=== PATIENT | female | born 1965 ===

== ENCOUNTER 2018-05-17 06:03 | Day surgery (SDC) | payer OTHER ==
[2018-05-17] MEDS ORDERED: Lactated Ringer's 500 ML IV ONE ×2 (08:02)
[2018-05-17] MEDS ORDERED: Propofol 10 mg/ml Inj (20 ML) ONE (08:17)
[2018-05-17] MEDS ORDERED: Lidocaine Hydrochloride 5 ML INJ ONE (08:18)
--- NOTE | 2018-05-17 08:18 | CP.SDSHP ---
Same Day Surgery H & P - History Proposed Procedure: colonoscopy Pre-Op Diagnosis: screening for colon cancer - Previous Medical/Surgical History Neuro: Seizure Disorder, Other (Cerebral palsy) Previous Surgical History: Multiple orthopedic procedures for CP complications - Allergies Allergies: Allergies morphine Allergy (Intermediate, Verified 09/18/15 09:58) RASH, ITCHINESS - Physical Exam Vital Signs: Vital Signs 05/17/18 06:32 Temperature 97.5 F L Pulse Rate 80 Respiratory 20 Rate Blood Pressure 119/75 O2 Sat by Pulse 97 Oximetry Mental Status: Alert & Oriented x3 Neuro: WNL Heart: WNL Lungs: WNL GI: WNL - Impression Impression: screening for colon cancer Pt. Evaluated Today:Candidate for Anesthesia & Procedure: Yes - Date & Time Date: 05/17/18 Time: 08:17 Short Stay Discharge - Short Stay Discharge Admitting Diagnosis/Reason for Visit: CHANGE IN BOWEL HABIT, SCREENING COLONOSCOPY Disposition: HOME/ ROUTINE
[2018-05-17 08:23] VITALS: O2SAT 100
[2018-05-17 12:03] VITALS: TEMP 96.6
[2018-05-17 12:11] VITALS: BP 130/80; PULSE 78; RESP 20
== END 2018-05-17 10:00 | disposition home or self-care (01) ==
LOC: C.ENDO 06:03
PROVIDERS: ATTEND Internal Medicine Gastroenterology
DX: K64.1 Second degree hemorrhoids (principal); R19.4 Change in bowel habit; G80.8 Other cerebral palsy; G40.909 Epilepsy, unspecified, not intractable, without status epilepticus; E78.5 Hyperlipidemia, unspecified
CPT/HCPCS: 45378; J2704; J7120

== ENCOUNTER 2018-07-20 18:47 | Emergency (ER) | payer OTHER ==
[2018-07-20 18:56] VITALS: O2SAT 98
[2018-07-20] MEDS ORDERED: Tdap Vaccine 0.5 ml Vial (10-64 yrs) IM ONE (19:18)
[2018-07-20] MEDS ORDERED: Bacitracin 500 Units/gm Oint Foilpak UD TOP STA (19:19)
[2018-07-20] MEDS ORDERED: Bacitracin 500 Units/gm Oint Foilpak UD ONE ×2 (19:26→20:54)
[2018-07-20] MEDS ORDERED: Tetanus/Diphtheria Toxoids 0.5 ml Syringe IM ONE (19:27)
--- NOTE | 2018-07-20 20:27 | C.PDOC ---
History Of Present Illness 53 y/o female presents to the ED for evaluation of injuries s/p fall 1 hour prior to arrival. Patient states she fell, hitting her right hand and left knee. Of note patient has PMHx of cerebral palsy and has slightly decreased ROM of the right hand at baseline. She denies any numbness, tingling, or extremity weakness. There was no head injury or LOC. Time Seen by Provider: 07/20/18 19:11 Chief Complaint (Nursing): Finger,Hand,&Wrist History Per: Patient History/Exam Limitations: no limitations Onset/Duration Of Symptoms: Mins Current Symptoms Are (Timing): Still Present Past Medical History Reviewed: Historical Data, Nursing Documentation, Vital Signs Vital Signs: Last Vital Signs Temp 98 F 07/20/18 18:51 Pulse 78 07/20/18 18:51 Resp 20 07/20/18 18:51 BP 105/66 07/20/18 18:51 Pulse Ox 98 07/20/18 18:51 - Medical History PMH: Hypercholesterolemia, Seizures Denies: Chronic Kidney Disease Other PMH: Cerebral Palsy - [facility] Procedures APPLICATION OF SPLINT (05/23/13) Family History: States: Unknown Family Hx - Social History Hx Tobacco Use: No Hx Alcohol Use: No Hx Substance Use: No - Immunization History Hx Tetanus Toxoid Vaccination: No Hx Influenza Vaccination: No Hx Pneumococcal Vaccination: No Review Of Systems Constitutional: Negative for: Fever Eyes: Negative for: Vision Change Cardiovascular: Negative for: Chest Pain Respiratory: Negative for: Shortness of Breath Gastrointestinal: Negative for: Nausea, Vomiting Musculoskeletal: Positive for: Hand Pain (right), Leg Pain (left knee) Neurological: Negative for: Weakness, Numbness, Incoordination Physical Exam - Physical Exam Appears: Non-toxic, No Acute Distress Skin: Warm, Dry, No Rash Head: Atraumatic, Normacephalic Eye(s): bilateral: Normal Inspection Neck: Normal ROM Chest: Symmetrical Cardiovascular: Rhythm Regular, No Murmur Respiratory: Normal Breath Sounds, No Accessory Muscle Use Extremity: Capillary Refill (less than 2sec), Swelling (and ecchymosis to dorsum of right hand), Other (Small superficial abrasion to left knee) Pulses: Left Radial: Normal, Right Radial: Normal Neurological/Psych: Oriented x3, Normal Speech, Normal Cognition, Other (Right hand with slight paralysis at baseline, patient reports ROM today is baseline) ED Course And Treatment O2 Sat by Pulse Oximetry: 98 (RA) Pulse Ox Interpretation: Normal - Other Rad Left Knee XR X-Ray: Interpreted by Me, Viewed By Me Interpretation: (-) acute fracture or dislocation Right Hand XR X-Ray: Interpreted by Me, Viewed By Me Interpretation: (-) acute fracture or dislocation Progress Note: Patient given 400 mg PO motrin for pain. Tetanus booster updated. X-rays taken of right hand and left knee, showing no acute fractures. Wound cleaned, bacitracin applied with sterile dressing. KEVIN wrap placed to right hand and knee immobilizer applied to left knee. Patent is stable for discharge home, advised to follow up with orthopedist. Disposition - Disposition Referrals: Dylan Ralph III, MD [Staff Provider] - Anabell Oseguera MD [Medical Doctor] - Disposition Time: 20:56 Condition: STABLE Additional Instructions: Follow up with PMD and Orthopedist within 1-2 days. Return to ED if feel worse. Prescriptions: Ibuprofen [Motrin Tab] 400 mg PO Q8 #30 tab Instructions: Contusion (DC) Forms: Contrib (Sen[place]alese) - Clinical Impression Clinical Impression: Hand contusion, Knee contusion - PA / FINANCIAL SERVICES ASSOCIATE / Resident Statement MD/DO has reviewed & agrees with the documentation as recorded. - Scribe Statement The provider has reviewed the documentation as recorded by the Scribtelma Raines All medical record entries made by the Scribe were at my direction and personally dictated by me. I have reviewed the chart and agree that the record accurately reflects my personal performance of the history, physical exam, medical decision making, and the department course for this patient. I have also personally directed, reviewed, and agree with the discharge instructions and disposition.
[2018-07-20 21:33] VITALS: BP 109/70; PULSE 72; RESP 18; TEMP 98.4
--- NOTE | 2018-07-21 09:10 | RAD ---
PROCEDURE: Right Hand Radiographs. HISTORY: fall COMPARISON: None. TECHNIQUE: 3 views obtained. Two views are limited in that there overlapping many of the metacarpal bones. The phalanges are however uncovered and not mostly superimposed on each other. FINDINGS: BONES: No fracture or lytic lesion. Generalized osteopenia. JOINTS: osteoarthritic changes. SOFT TISSUES: Normal. OTHER FINDINGS: Is metallic like material projecting over the forearm-correlate clinically IMPRESSION: No fracture or lytic lesion. Generalized osteopenia and mild to moderate degenerative changes. Other findings as above.
--- NOTE | 2018-07-21 09:10 | RAD ---
Date of service: 07/20/2018 PROCEDURE: Left Knee Radiographs. HISTORY: Pain. COMPARISON: None. TECHNIQUE: 2 views obtained. FINDINGS: BONES: Normal. No fracture. JOINTS: Normal. No osteoarthritis. JOINT EFFUSION: None. OTHER FINDINGS: None. IMPRESSION: Normal radiographs of the left knee.
== END 2018-07-20 21:52 | disposition home or self-care (01) ==
LOC: C.ER 18:47
DX: S60.221A Contusion of right hand, initial encounter (principal); S80.02XA Contusion of left knee, initial encounter; W18.30XA Fall on same level, unspecified, initial encounter